=== PATIENT | female | born 1945 | race Caucasian/White ===

== ENCOUNTER 2018-05-27 07:11 | Day surgery (SDC) | payer OTHER ==
--- NOTE | 2018-05-27 07:17 | PDHPUP ---
History & Physical Update H&P update statement: This history and physical update is based on an assessment of the patient which was completed after admission or registration (within 24 hours), but prior to the surgery/procedure. H&P update: H&P reviewed & patient examined, no change in patient's condition since H&P completed
[2018-05-27] MEDS ORDERED: ceFAZolin 2 GM/DEXTROSE 100 ML IV ONE (07:42)
[2018-05-27] MEDS ORDERED: LR 1,000 ML IV ONE (08:22)
[2018-05-27] MEDS ORDERED: BUPIVACAINE 0.5% 30 ML SDV ONE (08:35)
[2018-05-27] MEDS ORDERED: MIDAZOLAM 2 MG/2 ML VIAL IVP ONE (09:01)
--- NOTE | 2018-05-27 09:03 | PDANEPAE ---
ANE History of Present Illness VENTRAL HERNIA ANE Past Medical History - Cardiovascular History Hx Hypertension: Yes Hx Arrhythmias: No Hx Chest Pain: No Hx Coronary Artery / Peripheral Vascular Disease: No Hx CHF / Valvular Disease: No Hx Palpitations: No - Pulmonary History Hx COPD: No Hx Asthma/Reactive Airway Disease: No Hx Recent Upper Respiratory Infection: No Hx Oxygen in Use at Home: No Hx Sleep Apnea: No Sleep Apnea Screening Result - Last Documented: Positive - Neurologic History Hx Cerebrovascular Accident: No Hx Seizures: No Hx Dementia: No - Endocrine History Hx Diabetes: No - Renal History Hx Renal Disorders: No - Liver History Hx Hepatic Disorders: No - Neurological & Psychiatric Hx Hx Neurological and Psychiatric Disorders: No - Cancer History Hx Cancer: No - Congenital Disorder History Hx Congenital Disorders: No - GI History Hx Gastrointestinal Disorders: No - Surgical History Prior Surgeries: BILATERAL HIP REPLACEMENTS. R HAND CARPAL TUNNEL. NASAL SX. L BIG TOE SX ANE Review of Systems Review of Systems: - Exercise capacity METS (RN): 3 METS ANE Patient History - Allergies Allergies/Adverse Reactions: No Known Allergies Allergy (Unverified 05/26/18 20:57) - Home Medications Home Medications: [place] Thyroid 60 MG (*) 05/27/18 [Last Taken 05/26/18] Aspirin 81mg (*) 05/27/18 [Last Taken 1 Month Ago ~04/26/18] Calcium 05/27/18 [Last Taken 05/26/18] Fexofenadine HCl 05/27/18 [Last Taken 05/26/18] Fluticasone Nasal 05/27/18 [Last Taken 05/26/18] Losartan Potassium [Cozaar] 05/27/18 [Last Taken 05/26/18] Metamucil 05/27/18 [Last Taken 05/26/18] [place]-3 05/27/18 [Last Taken 05/26/18] Osteo Bi-Flex Caplet 05/27/18 [Last Taken 05/26/18] Pravastatin Sodium 05/27/18 [Last Taken 05/26/18] Vitamin C 05/27/18 [Last Taken 05/26/18] - NPO status NPO Since - Liquids (Date): 05/26/18 NPO Since - Liquids (Time): 21:30 NPO Since - Solids (Date): 05/26/18 NPO Since - Solids (Time): 21:30 - Smoking Hx Smoking Status: Never smoked ANE Labs/Vital Signs - Vital Signs Blood Pressure: 154/98 Heart Rate: 72 Respiratory Rate: 16 O2 Sat (%): 92 Height: 172.72 cm Weight: 101.151 kg ANE Physical Exam - Airway Neck exam: FROM Mallampati Score: Class 3 Mouth exam: normal dental/mouth exam - Pulmonary Pulmonary: no respiratory distress - Cardiovascular Cardiovascular: regular rate and rhythym - ASA Status ASA Status: II ANE Anesthesia Plan Anesthesia Plan: general endotracheal anesthesia
[2018-05-27] MEDS ORDERED: fentaNYL 100 MCG/2 ML INJ ONE ×3 (09:07→10:39)
[2018-05-27] MEDS ORDERED: PROPOFOL 200 MG/20 ML VIAL ONE (09:08)
[2018-05-27] MEDS ORDERED: ROCURONIUM 50 MG/5 ML VIAL ONE (09:50)
[2018-05-27] MEDS ORDERED: PHENYLEPHRINE HCL 100 MCG/ML SYR ONE (09:51)
[2018-05-27] MEDS ORDERED: ONDANSETRON 4 MG/2 ML VIAL ONE (09:51)
[2018-05-27] MEDS ORDERED: DEXAMETHASONE 4 MG/ML VIAL ONE (09:51)
[2018-05-27] MEDS ORDERED: ePHEDrine SULFATE 25 MG/5 ML SYR ONE (09:51)
[2018-05-27] MEDS ORDERED: PROMETHAZINE HCL 25 MG/ML INJ IVP PRN (09:52)
[2018-05-27] MEDS ORDERED: ONDANSETRON 4 MG/2 ML VIAL IVP PRN (09:52)
[2018-05-27] MEDS ORDERED: NALOXONE HCL 0.4 MG/ML INJ IVP PRN (09:52)
[2018-05-27] MEDS ORDERED: LABETALOL HCL 5 MG/ML 20 ML MDV IVP PRN (09:52)
[2018-05-27] MEDS ORDERED: HYDROmorphONE/DILAUDID 1 MG/ML INJ IVP PRN (09:52)
[2018-05-27] MEDS ORDERED: HYDROCODONE/APAP 5/325 TAB PO PRN (09:52)
[2018-05-27] MEDS ORDERED: SUGAMMADEX SODIUM 200 MG/2 ML VIAL IVP ONE ×2 (10:14)
--- NOTE | 2018-05-27 10:25 | POSTANESTH ---
Post Anesthetic Evaluation Cardiovascular Status: Normal, Stable Respiratory Status: Normal, Stable Level of Consciousness/Mental Status: Can Participate in Eval Pain Control: Adequate, Prn Tx Ordered Nausea/Vomiting Control: Adequate, Prn Tx Ordered Complications Possibly Related to Anesthesia: None Noted
[2018-05-27] MEDS: fentaNYL 100 MCG/2 ML INJ IVP PRN ×3 (10:40→11:00)
[2018-05-27] MEDS ORDERED: HYDROCODONE/APAP 5/325 TAB ONE (10:56)
--- NOTE | 2018-05-27 11:09 | GOP ---
[f rep st] OPERATIVE REPORT DATE OF OPERATION: SURGEON: Carlso Enrique Acosta MD SHIP OFFICER: Amber Martínez, [place]. ANESTHESIOLOGIST: Dr. Jules. PREOPERATIVE DIAGNOSIS: Ventral hernia. POSTOPERATIVE DIAGNOSIS: Ventral hernia. PROCEDURE PERFORMED: Ventral hernia repair with mesh. FINDINGS: Patient was found to have a 5 cm circular defect in the midline with protruding preperiton eal fat, omentum, and colon, which was easily reducible. DESCRIPTION OF PROCEDURE: The patient was taken to the operating room, where she received satisfacto ry general endotracheal anesthesia by Dr. Jules. She was placed in the supine position, prepped and draped in usual sterile fashion. A midline abdominal incision was made and carried down through the subcutaneous tissue. The hernia sac was encountered. It was dissected free from surrounding subcut aneous tissue, was dissected back to the fascia, was freed up from the fascial edges. A 2nd small 1 cm defect was also found lateral to the main defect and this was incorporated in the main closure. T he contents were reduced. A subfascial tunnel was easily developed, and a Covidien polyester ProGrip mesh was placed subfascially. It was anchored around the periphery with interrupted 0 Ethibond guille ress sutures and then the defect itself was closed transversely with interrupted 0 Ethibond figure-of -eight sutures. Wound was infiltrated with 0.5% Marcaine. Subcu was closed with 2-0 Vicryl and 3-0 Vicryl in separate layers, and the skin with a 4-0 Monocryl subcuticular stitch. She tolerated the p rocedure well. All layers infiltrated with 0.5% Marcaine. She was taken to the recovery room in goo d condition. /[id number]/MODL
[2018-05-27 11:52] VITALS: BP 148/66
== END 2018-05-27 12:02 | disposition home or self-care (01) ==
LOC: FSGY 07:11
PROVIDERS: ATTEND Surgery
PROC: 0WQF0ZZ Repair Abdominal Wall, Open Approach (ICD-10-PCS; principal; 2018-05-27 09:00)
DX: K43.9 Ventral hernia without obstruction or gangrene (principal)
CPT/HCPCS: C1781; J0690; J1100; J2250; J2370; J2405; J2704; J3010

== ENCOUNTER → 2019-02-10 | Outpatient (CLI) | payer OTHER | LOC: GIMAGING 12:48 → EDSTATUS 16:02 | PROVIDERS: ATTEND Internal Medicine Geriatric Medicine | DX: M53.3 Sacrococcygeal disorders, not elsewhere classified (principal); M51.37 Other intervertebral disc degeneration, lumbosacral region; M24.851 Other specific joint derangements of right hip, not elsewhere classified; M24.852 Other specific joint derangements of left hip, not elsewhere classified; Z96.643 Presence of artificial hip joint, bilateral | CPT/HCPCS: 72200-PO; 73521-PO ==